=== PATIENT | male | born 1970 | race Caucasian/White ===

== ENCOUNTER → 2016-07-19 10:29 | Emergency (ER) | payer BC ==
[~2016-07-19 10:29] MED LIST: Rivaroxaban TAB(*) 15 MG PO ONE
--- NOTE | 2016-07-19 12:17 | ED ---
Lower Extremity - HPI Summary HPI Summary: 46M presents with right leg calf pain for a week and swelling. He states he has noticed some redness at the area. He denies any fever. He denies any trauma. He denies any recent travel, surgeries. He denies any family history of blood clots. He has been immobilize though recently due to some back pain. He has been resting his back. He states the pain is not midline on his back and does not radiate anywhere. He denies any loss of bowel or bladder or saddle anaesthesia. He has not taken anything for his pain today. - History of Current Complaint Chief Complaint: EDExtremityLower Stated Complaint: RIGHT LEG PAIN Time Seen by Provider: 07/19/16 10:53 Pain Intensity: 1 - Allergies/Home Medications Allergies/Adverse Reactions: Allergies Allergy/AdvReac Type Severity Reaction Status Date / Time Penicillins [PCN] Allergy Swelling Verified 07/19/16 10:41 PMH/Surg Hx/FS Hx/Imm Hx Endocrine/Hematology History: Reports: Hx Diabetes Denies: Hx Anticoagulant Therapy Respiratory History: Denies: Hx Chronic Obstructive Pulmonary Disease (COPD) Infectious Disease History: No Infectious Disease History: Denies: Traveled Outside the [place] in Last 30 Days - Family History Known Family History: Negative: Blood Disorder - Social History Alcohol Use: None Substance Use Type: Reports: None Smoking Status (MU): Former Smoker Review of Systems Negative: Fever Negative: Chest Pain Negative: Shortness Of Breath Positive: Myalgia - back pain, right calf pain All Other Systems Reviewed And Are Negative: Yes Physical Exam Triage Information Reviewed: Yes Vital Signs On Initial Exam: Initial Vitals Temp Pulse Resp BP Pulse Ox 97.7 F 81 18 157/98 100 07/19/16 10:38 07/19/16 10:38 07/19/16 10:38 07/19/16 10:38 07/19/16 10:38 Vital Signs Reviewed: Yes Appearance: Positive: Well-Appearing Skin: Positive: Warm, Dry Head/Face: Positive: Normal Head/Face Inspection Eyes: Positive: Normal, Conjunctiva Clear ENT: Positive: Normal ENT inspection, Pharynx normal, TMs normal Musculoskeletal: Positive: Strength/ROM Intact - knee and ankle, Other - some erythema to area without warmth, tenderness to posterior calf, neg SLR, nontender back midline, tenderness to bilateral sides, good pulses. Negative: Anthony Sign Right Diagnostics - Vital Signs Vital Signs Temp Pulse Resp BP Pulse Ox 07/19/16 10:38 97.7 F 81 18 157/98 100 - Laboratory Result Diagrams: 07/19/16 13:00 07/19/16 13:00 Lab Statement: Any lab studies that have been ordered have been reviewed, and results considered in the medical decision making process. - Ultrasound No standard instances Ultrasound Interpretation: Positive (See Comments) - IMPRESSION: 1. THROMBOSED SUBCUTANEOUS VARICOSITIES, CONSISTENT WITH SUPERFICIAL THROMBOPHLEBITIS. 2. FINDINGS SUGGESTIVE OF CHRONIC THROMBOSIS OF CALF VEINS. 3. NO ACUTE RIGHT LOWER EXTREMITY DEEP VEIN THROMBOSIS Ultrasound Interpretation Completed By: Radiologist Lower Extremity Course/Dx - Course Course Of Treatment: 46M presents with right calf pain for a week. only risk factor is recent immbolization due to back pain has been laying in bed for past two days. He denies any injury. no midline back tenderness so discussed and did not get imaging of back. u/s shows no acute DVT but shows chronic thrombosis and thromboplebitis which fits with redness at site and does not appear at cellulitis. discussed with dr echols and will start on xarelto. kidney function okay to start xarelto. will treat back pain with muscle relaxers. discussed need to follow up with primary. patient understands and agrees with plan - Diagnoses Differential Diagnosis/HQI/PQRI: Positive: DVT, Sprain, Strain Provider Diagnoses: Superficial thrombophlebitis, Back pain, Chronic deep vein thrombosis of calf - Physician Notifications Discussed Care of Patient With: dr echols Time Discussed With Above Provider: 12:15 - add xarelto for chronic DVT Discharge - Discharge Plan Condition: Good Disposition: HOME Prescriptions: Cyclobenzaprine TAB* [Flexeril 10 MG TAB*] 10 mg PO TID PRN #9 tab PRN Reason: Pain Rivaroxaban TAB(*) [Xarelto 15 mg(*)] 15 mg PO BID #42 tab Patient Education Materials: Rivaroxaban (By mouth), Superficial Thrombophlebitis (ED), Back Pain (ED) Forms: *Work Release Referrals: Raman Starks MD [Medical Doctor] - Additional Instructions: Take blood thinner twice a day for 21 days Take muscle relaxer three times a day for [address] heat on calf muscle Can take Tylenol for pain, avoid ibuprofen Follow up with primary within week Return to ED if develop any abnormal bleeding or any new or worsening symptoms
--- NOTE | 2016-07-19 12:19 | RAD ---
HISTORY: Right calf pain and swelling COMPARISONS: None relevant TECHNIQUE: Multiple transverse and longitudinal ultrasound images were obtained of the right lower extremity from the level of the common femoral vein inferiorly through to the infrapopliteal veins using grayscale, color Doppler, and spectral Doppler imaging with and without compression and with augmentation. Comparison images were obtained of the contralateral common femoral vein. FINDINGS: VEINS: There is thrombosis of subcutaneous varicosities of the right calf. There is limited flow within the posterior tibial veins with absence of one peroneal vein. The remainder of the venous system of the right lower extremity is compressible throughout its course, with normal flow on color Doppler imaging and normal response to augmentation on spectral Doppler imaging. SOFT TISSUES: Unremarkable. OTHER FINDINGS: None. IMPRESSION: 1. THROMBOSED SUBCUTANEOUS VARICOSITIES, CONSISTENT WITH SUPERFICIAL THROMBOPHLEBITIS. 2. FINDINGS SUGGESTIVE OF CHRONIC THROMBOSIS OF CALF VEINS. 3. NO ACUTE RIGHT LOWER EXTREMITY DEEP VEIN THROMBOSIS
[2016-07-19 13:11] LABS: Hematocrit 43 % (42-52); Hemoglobin 14.4 g/dl (14.0-18.0); Mean Corpuscular HGB Conc 34 g/dl (31-36); Mean Corpuscular Hemoglobin 30 pg (27-31); Mean Corpuscular Volume 89 fL (80-94); Mean Platelet Volume 7 um3 (7.4-10.4); Red Blood Count 4.81 10^6/ul (4.0-5.4); Red Cell Distribution Width 12 % (10.5-15)
[2016-07-19 13:22] LABS: BUN/Creatinine Ratio 28.3 (8-20); EGFR African American 185.7 (>60); EGFR Non-African American 144.4 (>60); Globulin 2.8 g/dL (2-4); Potassium 4.3 mmol/L (3.5-5.0); Total Bilirubin 0.5 mg/dL (0.2-1.0); Total Protein 6.8 g/dL (6.4-8.9)
[2016-07-19 15:09] VITALS: BP 145/89
== END | disposition home or self-care (01) ==
LOC: ED 10:29
DX: I80.9 Phlebitis and thrombophlebitis of unspecified site (principal); I82.5Z1 Chronic embolism and thrombosis of unspecified deep veins of right distal lower extremity; M54.9 Dorsalgia, unspecified; M79.604 Pain in right leg; Z87.891 Personal history of nicotine dependence
CPT/HCPCS: 36415; 80053; 85025; 85610; 99282

== ENCOUNTER 2017-07-20 20:39 | Emergency (ER) | payer SELFPAY ==
[2017-07-20] MEDS ORDERED: Tetan/Diph/Pertus SYR(Tdap)* 0.5 ML SYR(BOOSTRIX) use SYR IM ONE (21:06)
[2017-07-20] MEDS ORDERED: Bacitracin OINTMENT* 0.5% 0.5 oz TUBE TOPICAL ONE (21:17)
--- NOTE | 2017-07-20 21:21 | ED ---
Laceration/Wound HPI - HPI Summary HPI Summary: Complains of amputation of distal tip of left thumb while cutting basal today. Minor involvement of the thumbnail. Denies loss of sensation or function. Patient not currently on Xarelto. States tetanus status up-to-date - History of Current Complaint Stated Complaint: LT HAND LAC Time Seen by Provider: 07/20/17 20:58 Hx Obtained From: Patient Pain Intensity: 0 - Allergy/Home Medications Allergies/Adverse Reactions: Allergies Allergy/AdvReac Type Severity Reaction Status Date / Time Penicillins Allergy Swelling Verified 07/20/17 20:45 PMH/Surg Hx/FS Hx/Imm Hx Endocrine/Hematology History: Reports: Hx Diabetes Denies: Hx Anticoagulant Therapy Respiratory History: Denies: Hx Chronic Obstructive Pulmonary Disease (COPD) Infectious Disease History: No Infectious Disease History: Denies: Traveled Outside the [place] in Last 30 Days - Family History Known Family History: Negative: Blood Disorder - Social History Alcohol Use: None Substance Use Type: Reports: None Smoking Status (MU): Former Smoker Review of Systems Constitutional: Negative Eyes: Negative ENT: Negative Cardiovascular: Negative Respiratory: Negative Gastrointestinal: Negative Genitourinary: Negative Musculoskeletal: Negative Skin: Negative Neurological: Negative Psychological: Normal All Other Systems Reviewed And Are Negative: Yes Physical Exam - Summary Physical Exam Summary: Distal tip of left thumb amputation. No indication for suturing. Minimal involvement of left thumbnail. PMS intact. No other injuries Triage Information Reviewed: Yes Vital Signs On Initial Exam: Initial Vitals Temp Pulse Resp BP Pulse Ox 97.8 F 113 20 161/94 96 07/20/17 20:42 07/20/17 20:42 07/20/17 20:42 07/20/17 20:42 07/20/17 20:42 Vital Signs Reviewed: Yes Appearance: Positive: Well-Appearing Skin: Positive: Warm Head/Face: Positive: Normal Head/Face Inspection Eyes: Positive: Normal Neck: Positive: Supple Respiratory/Lung Sounds: Positive: Clear to Auscultation Cardiovascular: Positive: Normal Abdomen Description: Positive: Nontender Musculoskeletal: Positive: Normal Neurological: Positive: Normal Psychiatric: Positive: Normal AVPU Assessment: Alert - [place] Coma Scale Best Eye Response: 4 - Spontaneous Best Motor Response: 6 - Obeys Commands Best Verbal Response: 5 - Oriented Coma Scale Total: 15 Diagnostics - Vital Signs Vital Signs Temp Pulse Resp BP Pulse Ox 07/20/17 20:42 97.8 F 113 20 161/94 96 - Laboratory Lab Statement: Any lab studies that have been ordered have been reviewed, and results considered in the medical decision making process. Laceration Repair Course/Dx - Course Course Of Treatment: Distal tip of left thumb amputation, very minor involvement of nail. PMS intact. Tetanus up-to-date. No sutures indicated. Wound washed, covered in bacitracin and nonstick pad. Rx for Keflex - Clinical Impression Provider Diagnoses: Laceration Discharge - Sign-Out/Discharge Documenting (check all that apply): Discharge/Admit/Transfer - Discharge Plan Condition: Stable Disposition: HOME Prescriptions: Cephalexin CAP* [Keflex CAP*] 500 mg PO TID 7 Days #21 cap Patient Education Materials: Finger Laceration (ED), Laceration Without Closure (ED) Referrals: No Primary Care Phys,NOPCP [Primary Care Provider] - Additional Instructions: Take antibiotics as directed. Wash wound with warm running water and soap. Do not submerge.. Cover with antibiotic ointment and nonstick bandage while not washing. Return to the ED for any new or worsening symptoms - Billing Disposition and Condition Condition: STABLE Disposition: HOME
[2017-07-20] MEDS ORDERED: Cephalexin CAP* 500 MG PO ONE (21:24)
[2017-07-20 22:02] VITALS: BP 133/109
== END 2017-07-20 22:02 | disposition home or self-care (01) ==
LOC: ED 20:39
DX: S61.012A Laceration without foreign body of left thumb without damage to nail, initial encounter (principal); W45.8XXA Other foreign body or object entering through skin, initial encounter; Y93.G1 Activity, food preparation and clean up; Y92.9 Unspecified place or not applicable; E11.9 Type 2 diabetes mellitus without complications; Z87.891 Personal history of nicotine dependence
CPT/HCPCS: 96372; 99282; A9270-GY